=== PATIENT | female | born 1985 | race Caucasian/White ===

== ENCOUNTER 2016-12-14 19:18 | Emergency (ER) | payer OTHER ==
[2016-12-14 19:24] VITALS: O2SAT 98
--- NOTE | 2016-12-14 19:29 | ERPHSYRPT ---
- History of Present Illness Time Seen by Provider: 12/14/16 19:18 Historian: patient Exam Limitations: no limitations Physician History: Pt. C/O substernal chest pain radiating to right shoulder x 2 days. She was at urgent care today with diagnosis of possible GERD/ulcer. She is worse tonight. Pain is completely reproducible to palpation over epigastrium and sternum. No risk factors for CAD except smoking. She had LNMP 1 week ago. Uses no control. Timing/Duration: day(s) (2) Activities at Onset: none Quality: sharpness Location: epigastric Severity of Pain-Max: moderate Severity of Pain-Current: moderate Modifying Factors: Improves With: nothing Associated Symptoms: denies symptoms Prior Chest Pain/Cardiac Workup: no prior chest pain, no prior cardiac workup Nitro Today/Relief: no nitro taken today Aspirin Treatment Today: no aspirin today Allergies/Adverse Reactions: Sulfa (Sulfonamide Antibiotics) Allergy (Verified 12/14/16 19:23) Home Medications: Amphet Asp/Amphet/D-Amphet [Adderall 30 mg Tablet] 30 mg PO DAILY 12/14/16 [ History] Hx Influenza Vaccination/Date Given: No Hx Pneumococcal Vaccination/Date Given: No - Review of Systems Constitutional: No Symptoms Eyes: No Symptoms Ears, Nose, & Throat: No Symptoms Respiratory: No Symptoms Cardiac: Chest Pain Abdominal/Gastrointestinal: Abdominal Pain Musculoskeletal: No Symptoms Skin: No Symptoms Neurological: No Symptoms Psychological: No Symptoms Endocrine: No Symptoms Hematologic/Lymphatic: No Symptoms - Past Medical History Pertinent Past Medical History: No Neurological History: Migraines ENT History: No Pertinent History Cardiac History: No Pertinent History Respiratory History: No Pertinent History Endocrine Medical History: No Pertinent History Musculoskeletal History: No Pertinent History GI Medical History: No Pertinent History History: No Pertinent History Psycho-Social History: No Pertinent History Female Reproductive Disorders: No Pertinent History - Past Surgical History Past Surgical History: No Neuro Surgical History: No Pertinent History Cardiac: No Pertinent History Respiratory: No Pertinent History Gastrointestinal: No Pertinent History Genitourinary: No Pertinent History Musculoskeletal: No Pertinent History Female Surgical History: No Pertinent History - Social History Smoking Status: Current every day smoker How long have you smoked: 14 Exposure to second hand smoke: Yes Drug Use: none - Nursing Vital Signs Nursing Vital Signs: Initial Vital Signs Temperature 98.8 F Temperature Source Oral Pulse Rate [Left Radial] 60 Pulse Rate 69 Respiratory Rate 18 Blood Pressure [Left Arm] 130/72 Pain Intensity 8 - Physical Exam General Appearance: moderate distress Eye Exam: PERRL/EOMI, eyes nml inspection Ears, Nose, Throat Exam: normal ENT inspection, pharynx normal, moist mucous membranes Neck Exam: normal inspection, non-tender, supple, full range of motion Respiratory Exam: normal breath sounds, lungs clear, airway intact Cardiovascular Exam: regular rate/rhythm, normal heart sounds, normal peripheral pulses Gastrointestinal/Abdomen Exam: soft, normal bowel sounds, tenderness ( epigastrium), No mass, No guarding, No pulsatile mass Back Exam: normal inspection, normal range of motion Extremity Exam: normal inspection, normal range of motion, pelvis stable Neurologic Exam: alert, oriented x 3, cooperative Skin Exam: normal color, warm, dry SpO2 Interpretation: normal SpO2: 98 Oxygen Delivery: Room Air - Course Nursing assessment & vital signs reviewed: Yes EKG Interpreted by Me: RATE (64), Sinus Rhythm, NORMAL AXIS, Other (Normal ECG) - Radiology Exams Chest X-ray Interpretation: Interpreted by me, Reviewed by me, Negative Ordered Tests: Active Orders 24 hr Category Date Time Status EKG-ER Only STAT Care 12/14/16 19:38 Active CHEST 1 VIEW (PORTABLE) Stat Exams 12/14/16 19:34 Taken CBC W DIFF Stat Lab 12/14/16 19:30 Completed CMP Stat Lab 12/14/16 19:30 Completed LIPASE Stat Lab 12/14/16 19:30 Completed TROPONIN Stat Lab 12/14/16 19:30 Completed Medication Summary Discontinued Medications Generic Name Dose Route Start Last Admin Trade Name Bolaq PRN Reason Stop Dose Admin Al Hydrox/Mg Hydrox/Simethicone Confirm 12/14/16 19:43 Maalox Es 30 Ml Unit Dose Administered 12/14/16 19:44 Dose 30 ml .ROUTE .STK-MED ONE Aspirin 324 mg 12/14/16 19:38 12/14/16 19:49 Baby Aspirin 81 Mg Chew PO 12/14/16 19:39 324 mg STAT ONE Administration Aspirin Confirm 12/14/16 19:42 Baby Aspirin 81 Mg Chew Administered 12/14/16 19:43 Dose 324 mg .ROUTE .STK-MED ONE Belladonna Alkaloids/Phenobarbital 60 ml 12/14/16 19:34 12/14/16 19:50 Gi Cocktail 60ml (Belladonn/Phenobarb/Lidoc* PO 12/14/16 19:35 60 ml STAT ONE Administration Belladonna Alkaloids/Phenobarbital Confirm 12/14/16 19:44 Donnatol Liquid Administered 12/14/16 19:45 Dose 64.8 mg .ROUTE .STK-MED ONE Lidocaine HCl Confirm 12/14/16 19:43 Xylocaine Hcl Viscous * Administered 12/14/16 19:44 Dose 20 ml .ROUTE .STK-MED ONE Lab/Rad Data: Laboratory Result Diagrams 12/14/16 19:30 12/14/16 19:30 Laboratory Results 12/14/16 12/14/16 Range/Units 19:30 19:30 WBC 10.8 H (4.0-10.5) K/mm3 RBC 4.49 (4.1-5.4) M/mm3 Hgb 12.4 (12.0-16.0) gm/dl Hct 38.7 (35-47) % MCV 86.2 (78-100) fl MCH 27.6 (26-32) pg MCHC 32.0 (32-36) g/dl RDW 13.4 (11.5-14.0) % Plt Count 300 (150-450) K/mm3 MPV 9.7 H (6-9.5) fl Gran % 68.9 H (36.0-66.0) % Lymphocytes % 23.1 L (24.0-44.0) % Monocytes % 5.5 (0.0-12.0) % Eosinophils % 2.0 (0.00-5.0) % Basophils % 0.5 (0.0-0.4) % Basophils # 0.05 (0-0.4) Sodium 144 (136-145) mEq/L Potassium 4.0 (3.5-5.1) mEq/L Chloride 108 H (98-107) mEq/L Carbon Dioxide 24.7 (21-32) mEq/L Anion Gap 15.3 H (5-15) MEQ/L BUN 10 (9-20) mg/dL Creatinine 0.98 (0.55-1.30) mg/dl Estimated GFR > 60 ML/MIN Glucose 118 H (70-110) MG/DL Calcium 8.6 (8.5-10.1) mg/dL Total Bilirubin 0.10 L (0.2-1.0) mg/dL AST 11 L (15-37) U/L ALT 23 (12-78) U/L Alkaline Phosphatase 56 (46-116) U/L Troponin I < 0.017 (0.000-0.056) ng/ml Serum Total Protein 6.7 (6.4-8.2) gm/dL Albumin 3.6 (3.4-5.0) g/dL Lipase 226 (73-393) U/L - Progress Progress: improved Air Movement: good Blood Culture(s) Obtained: No Antibiotics given: No Will see patient in: office, other (PCP 1 week) Counseled pt/family regarding: lab results, diagnosis, need for follow-up - Departure Time of Disposition: 20:30 Departure Disposition: Home (2029) Clinical Impression: Chest pain in adult GERD (gastroesophageal reflux disease) Qualifiers: Esophagitis presence: esophagitis presence not specified Qualified Code(s): K21.9 - Gastro-esophageal reflux disease without esophagitis Condition: Stable Critical Care Time: No
[2016-12-14] MEDS ORDERED: GI COCKTAIL 60ML (Belladonn/Phenobarb/Lidoc PO ONE (19:34)
[2016-12-14] MEDS ORDERED: BABY ASPIRIN 81 MG CHEW PO ONE (19:38)
[2016-12-14] MEDS ORDERED: BABY ASPIRIN 81 MG CHEW ONE (19:42)
[2016-12-14] MEDS ORDERED: XYLOCAINE HCl Viscous ONE (19:43)
[2016-12-14] MEDS ORDERED: MAALOX ES 30 ML UNIT DOSE ONE (19:43)
[2016-12-14] MEDS ORDERED: Donnatol Liquid ONE (19:44)
[2016-12-14 19:45] LABS: BASOPHIL % 0.5 % (0.0-0.4); Granulocytes % 68.9 % (36.0-66.0); Lymphocytes % 23.1 % (24.0-44.0); Mean Cell Volume 86.2 fl (78-100); Mean Corpuscular Hemoglobin 27.6 pg (26-32); Mean Platelet Volume 9.7 fl (6-9.5); Monocytes % 5.5 % (0.0-12.0); Platelet Count 300 K/mm3 (150-450); Red Blood Count 4.49 M/mm3 (4.1-5.4); Red Cell Distribution Width 13.4 % (11.5-14.0); White Blood Count 10.8 K/mm3 (4.0-10.5)
[2016-12-14 19:52] VITALS: BP 130/72; PULSE 69
[2016-12-14 20:00] LABS: ALBUMIN 3.6 g/dL (3.4-5.0); ALKALINE PHOSPHATASE 56 U/L (46-116); ANION GAP 15.3 MEQ/L (5-15); BLOOD UREA NITROGEN 10 mg/dL (9-20); CHLORIDE 108 mEq/L (98-107); Carbon Dioxide 24.7 mEq/L (21-32); Glucose 118 MG/DL (70-110); LIPASE 226 U/L (73-393); SGOT/AST 11 U/L (15-37); SGPT/ALT 23 U/L (12-78); SODIUM 144 mEq/L (136-145); Total Protein 6.7 gm/dL (6.4-8.2)
[2016-12-14 20:02] LABS: TROPONIN < 0.017 ng/ml (0.000-0.056)
[2016-12-14] MEDS ORDERED: Zofran 4 MG/2 ML VIAL IV ONE (20:38)
[2016-12-14] MEDS ORDERED: Zofran 4 MG/2 ML VIAL ONE (20:40)
--- NOTE | 2016-12-15 08:46 | XRAY ---
Indication: Chest pain. Comparison: None Portable chest demonstrates normal heart, lungs, and bony thorax.
== END 2016-12-14 20:55 | disposition home or self-care (01) ==
LOC: ED 19:18
DX: K21.9 Gastro-esophageal reflux disease without esophagitis (principal); R07.89 Other chest pain; R10.13 Epigastric pain
CPT/HCPCS: 36415; 71010; 80053; 83690; 84484; 85025; 93005; 96374; 99284; J2405; A9270-GY

== ENCOUNTER 2019-07-06 22:01 | Emergency (ER) | payer OTHER ==
--- NOTE | 2019-07-06 23:00 | ERPHSYRPT ---
- History of Present Illness Time Seen by Provider: 07/06/19 22:59 Source: patient Exam Limitations: no limitations Patient Subjective Stated Complaint: pt states that the whole family has had the flu for the past few days, pt states that she is coughing so hard that she is urinating herself, pt states that she has had fever for the past few days, pt states that her chest hurt from coughing, pt states that she has trouble breathing, pt states that she has had a sore throat, pt states that she has been unable to keep anything down for the past 4 days, pt states very little oral intake, pt states she took teslum right before she came in Triage Nursing Assessment: pt ambulated into the er, pt is axo x4, pt is hot the the touch, pt has dry hacking cough, pt has wheezing to rt lower lobe, vitals wnl, throat is red Physician History: 4 days of vomiting and coughing. Pt notes that other members of her family have been sick with confirmed Influenza A. Pt notes that she coughs to the point of being incontinent but also that she feels short of breath and is wheezing. Timing/Duration: day(s) (3) Severity: severe Modifying Factors: Improves With: eating, movement Associated Symptoms: nausea, vomiting, abdominal pain, shortness of breath, cough, chills, chest pain, fever, headaches, malaise, weakness Allergies/Adverse Reactions: Sulfa (Sulfonamide Antibiotics) Allergy (Verified 07/06/19 22:33) Home Medications: Amphet Asp/Amphet/D-Amphet [Adderall 30 mg Tablet] 30 mg PO DAILY 12/14/16 [ History] Hx Tetanus, Diphtheria Vaccination/Date Given: No (unknown) Hx Influenza Vaccination/Date Given: No Hx Pneumococcal Vaccination/Date Given: No - Review of Systems Constitutional: Fever, Chills, Fatigue, Lethargy, Malaise Eyes: No Symptoms Ears, Nose, & Throat: No Symptoms, Nose Congestion, Nose Discharge Respiratory: Cough, Dyspnea, Wheezing, Other (chest discomfort with cough) Cardiac: No Symptoms Genitourinary Symptoms: Incontinence Musculoskeletal: Arthralgias, Myalgias Skin: No Symptoms Neurological: No Symptoms, Headache Psychological: No Symptoms Endocrine: No Symptoms Hematologic/Lymphatic: No Symptoms All Other Systems: Reviewed and Negative - Past Medical History Pertinent Past Medical History: No Neurological History: Migraines ENT History: No Pertinent History Cardiac History: No Pertinent History Respiratory History: No Pertinent History Endocrine Medical History: No Pertinent History Musculoskeletal History: No Pertinent History GI Medical History: No Pertinent History History: No Pertinent History Psycho-Social History: No Pertinent History Female Reproductive Disorders: No Pertinent History - Past Surgical History Past Surgical History: No Neuro Surgical History: No Pertinent History Cardiac: No Pertinent History Respiratory: No Pertinent History Gastrointestinal: No Pertinent History Genitourinary: No Pertinent History Musculoskeletal: No Pertinent History Female Surgical History: Section Other Surgical History: 2 c-sections - Social History Smoking Status: Current every day smoker How long have you smoked: 14 Exposure to second hand smoke: Yes Drug Use: none Patient Lives Alone: No - Female History Hx Last Menstrual Period: 07/06/19 Hx Now: No - Nursing Vital Signs Nursing Vital Signs: Initial Vital Signs Temperature 101.2 F 07/06/19 22:10 Pulse Rate 93 H 07/06/19 22:10 Respiratory Rate 14 07/06/19 22:10 Blood Pressure 131/86 07/06/19 22:10 O2 Sat by Pulse Oximetry 97 07/06/19 22:10 Pain Scale Pain Intensity 7 - Physical Exam General Appearance: mild distress, alert, lethargy Eye Exam: PERRL/EOMI, photophobia Ears, Nose, Throat Exam: normal ENT inspection, TMs normal, moist mucous membranes, pharyngeal erythema (mild) Neck Exam: normal inspection, supple, No meningismus Respiratory Exam: diminished breath sounds, wheezing (minimsl or soft) Cardiovascular Exam: regular rate/rhythm, normal heart sounds, normal peripheral pulses, No murmur, No friction rub, No gallop, No tachycardia, No edema, No pulse deficit Gastrointestinal/Abdomen Exam: soft, normal bowel sounds, tenderness, No distention, No mass, No guarding, No ecchymosis Pelvic Exam: not done Rectal Exam: deferred Back Exam: normal inspection Extremity Exam: normal inspection, normal range of motion, No parasthesia Neurologic Exam: alert, oriented x 3, cooperative, 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, nml station & gait, No motor deficits, No sensory deficit Skin Exam: normal color, warm, dry, No rash Lymphatic Exam: No adenopathy SpO2 Interpretation: normal SpO2: 97 O2 Delivery: Room Air - Course Nursing assessment & vital signs reviewed: Yes Ordered Tests: Active Orders 24 hr Category Date Time Status OBSTR/ACUTE ABDOMEN SERIES Stat Exams 07/07/19 00:47 Taken AMYLASE Stat Lab 07/07/19 00:52 Completed CBC W DIFF Stat Lab 07/07/19 00:52 Completed CMP Stat Lab 07/07/19 00:52 Completed HCG,QUALITATIVE URINE Stat Lab 07/07/19 01:57 Completed LIPASE Stat Lab 07/07/19 00:52 Completed Lactic Acid Stat Lab 07/07/19 00:55 Completed Respiratory Therapy Assessment DAILY RT 07/07/19 01:51 Active Medication Summary Discontinued Medications Generic Name Dose Route Start Last Admin Trade Name Freq PRN Reason Stop Dose Admin Albuterol/Ipratropium 3 ml 07/07/19 01:34 07/07/19 01:48 Duoneb 0.5-3 Mg/3 Ml Neb IH 07/07/19 01:35 3 ml STAT ONE Administration Albuterol/Ipratropium Confirm 07/07/19 01:44 Duoneb 0.5-3 Mg/3 Ml Neb Administered 07/07/19 01:45 Dose 3 ml IH .STK-MED ONE Sodium Chloride 1,000 mls @ 999 mls/hr 07/07/19 00:46 07/07/19 02:13 Sodium Chloride 0.9% 1000 Ml IV 07/07/19 01:46 Infused .Q1H1M STA Infusion Sodium Chloride Confirm 07/07/19 01:00 Sodium Chloride 0.9% 1000 Ml Administered 07/07/19 01:01 Dose 1,000 mls @ ud .ROUTE .STK-MED ONE Sodium Chloride Confirm 07/07/19 01:06 Sodium Chloride 0.9% 1000 Ml Administered 07/07/19 01:07 Dose 1,000 mls @ ud .ROUTE .STK-MED ONE Ondansetron HCl 4 mg 07/07/19 00:46 07/07/19 01:08 Zofran 4 Mg/2 Ml Vial IV 07/07/19 00:47 4 mg STAT ONE Administration Ondansetron HCl Confirm 07/07/19 01:00 Zofran 4 Mg/2 Ml Vial Administered 07/07/19 01:01 Dose 4 mg .ROUTE .STK-MED ONE Ondansetron HCl Confirm 07/07/19 01:06 Zofran 4 Mg/2 Ml Vial Administered 07/07/19 01:07 Dose 4 mg .ROUTE .[facility] ONE Oseltamivir Phosphate 75 mg 07/07/19 01:37 07/07/19 01:55 Tamiflu 75mg Capsule PO 07/07/19 01:38 75 mg STAT ONE Administration Oseltamivir Phosphate Confirm 07/07/19 01:55 Tamiflu 75mg Capsule Administered 07/07/19 01:56 Dose 75 mg PO .[facility] ONE Lab/Rad Data: Laboratory Result Diagrams 07/07/19 00:52 07/07/19 00:52 Laboratory Results 07/07/19 07/07/19 07/07/19 Range/Units 01:57 00:56 00:55 WBC (4.0-10.5) K/mm3 RBC (4.1-5.4) M/mm3 Hgb (12.0-16.0) gm/dl Hct (35-47) % MCV (78-100) fl MCH (26-32) pg MCHC (32-36) g/dl RDW (11.5-14.0) % Plt Count (150-450) K/mm3 MPV (6-9.5) fl Gran % (36.0-66.0) % Eos # (Auto) (0-0.5) Absolute Lymphs (auto) (1.0-4.6) Absolute Monos (auto) (0.0-1.3) Lymphocytes % (24.0-44.0) % Monocytes % (0.0-12.0) % Eosinophils % (0.00-5.0) % Basophils % (0.0-0.4) % Absolute Granulocytes (1.4-6.9) Basophils # (0-0.4) Sodium (137-145) mmol/L Potassium (3.5-5.1) mmol/L Chloride (98-107) mmol/L Carbon Dioxide (22-30) mmol/L Anion Gap (5-15) MEQ/L BUN (7-17) mg/dL Creatinine (0.52-1.04) mg/dL Estimated GFR ML/MIN Glucose (74-106) mg/dL Lactic Acid 1.0 (0.4-2.0) Calcium (8.4-10.2) mg/dL Total Bilirubin (0.2-1.3) mg/dL AST (14-36) U/L ALT (0-35) U/L Alkaline Phosphatase (38-126) U/L Serum Total Protein (6.3-8.2) g/dL Albumin (3.5-5.0) g/dL Amylase (30-110) U/L Lipase (23-300) U/L Urine HCG, Qual NEGATIVE (Negative) Influenza Type A Ag POSITIVE (NEGATIVE) Influenza Type B Ag NEGATIVE (NEGATIVE) RSV (PCR) NEGATIVE (Negative) 07/07/19 07/07/19 Range/Units 00:52 00:52 WBC 5.4 (4.0-10.5) K/mm3 RBC 4.81 (4.1-5.4) M/mm3 Hgb 13.2 (12.0-16.0) gm/dl Hct 40.6 (35-47) % MCV 84.4 (78-100) fl MCH 27.4 (26-32) pg MCHC 32.5 (32-36) g/dl RDW 13.2 (11.5-14.0) % Plt Count 213 (150-450) K/mm3 MPV 10.3 H (6-9.5) fl Gran % 76.1 H (36.0-66.0) % Eos # (Auto) 0 (0-0.5) Absolute Lymphs (auto) 0.80 L (1.0-4.6) Absolute Monos (auto) 0.48 (0.0-1.3) Lymphocytes % 14.8 L (24.0-44.0) % Monocytes % 8.9 (0.0-12.0) % Eosinophils % 0.0 (0.00-5.0) % Basophils % 0.2 (0.0-0.4) % Absolute Granulocytes 4.10 (1.4-6.9) Basophils # 0.01 (0-0.4) Sodium 135 L (137-145) mmol/L Potassium 3.2 L (3.5-5.1) mmol/L Chloride 100 (98-107) mmol/L Carbon Dioxide 25 (22-30) mmol/L Anion Gap 12.8 (5-15) MEQ/L BUN 7 (7-17) mg/dL Creatinine 0.75 (0.52-1.04) mg/dL Estimated GFR > 60.0 ML/MIN Glucose 115 H (74-106) mg/dL Lactic Acid (0.4-2.0) Calcium 8.8 (8.4-10.2) mg/dL Total Bilirubin 0.40 (0.2-1.3) mg/dL AST 42 H (14-36) U/L ALT 19 (0-35) U/L Alkaline Phosphatase 60 (38-126) U/L Serum Total Protein 7.0 (6.3-8.2) g/dL Albumin 3.8 (3.5-5.0) g/dL Amylase 72 (30-110) U/L Lipase 90 (23-300) U/L Urine HCG, Qual (Negative) Influenza Type A Ag (NEGATIVE) Influenza Type B Ag (NEGATIVE) RSV (PCR) (Negative) - Progress Progress: improved Progress Note: 07/07/19 09:41 This pt cam in when there were several pt's here and some needing to be discharged. I did see the pt in a timely fashion but it took a bit to realize that I had put a discharge and other order set in first not getting her orders in very quickly and missing the Duoneb order initially. Pt was not hypoxic but did get some relief from the duoneb when she finally got the treatment. Pt improved also with normal saline bolus and with zofran. - Departure Departure Disposition: Home Clinical Impression: Influenza A, Vomiting, Acute bronchospasm Condition: Stable Critical Care Time: No Referrals: LATRICE PANTOJA MD [Primary Care Provider] - Instructions: Nausea -- Adult, Vomiting -- Adult Additional Instructions: You will need to take the Tamiflu for the next 5 days and then Zofran as needed for nausea and vomiting. Start to take sips of liquids every 5-10 minutes and then after a couple of times take an ounce and wait for 10-15 minutes. When you can keep the ounce down then you may drink /sip freely, non-caffienated clear liquids, jello, and broth or popsicles. Do this for 24 hours. Then, for the next 24 hours then you can try Bananas, Rice, Applesauce and toast. When you can keep these things down then you can advance your diet as tolerated. I would suggest starting with the rice and maybe some soy sauce or cook the rice in a broth but be careful no to add milk or alot of butter as this could upset your stomach. Prescriptions: Ondansetron ODT 4 MG [Zofran Odt 4 mg] 4 mg PO Q8H PRN PRN #8 tab.rapdis PRN Reason: Vomiting Albuterol 8 gm Mdi Hfa [Ventolin Hfa MDI] 8 gm IH Q4H #1 hfa.aer.ad Oseltamivir 75 mg [Tamiflu 75MG Capsule] 75 mg PO BID #10 cap
[2019-07-07] MEDS ORDERED: Sodium Chloride 0.9% 1000 ML 1,000 ML IV STA (00:46)
[2019-07-07] MEDS ORDERED: Zofran 4 MG/2 ML VIAL IV ONE (00:46)
[2019-07-07 00:56] LABS: BASOPHIL % 0.2 % (0.0-0.4); Basophil (Absolute #) 0.01 (0-0.4); Eosinophil (Absolute #) 0 (0-0.5); Hematocrit 40.6 % (35-47); Hemoglobin 13.2 gm/dl (12.0-16.0); Lymphocytes % 14.8 % (24.0-44.0); Mean Cell Volume 84.4 fl (78-100); Mean Corpuscular Hemoglobin 27.4 pg (26-32); Mean Corpuscular Hgb Concent. 32.5 g/dl (32-36); Mean Platelet Volume 10.3 fl (6-9.5); Monocyte (Absolute #) 0.48 (0.0-1.3); Monocytes % 8.9 % (0.0-12.0); Neutrophil % 76.1 % (36.0-66.0); Platelet Count 213 K/mm3 (150-450); Red Blood Count 4.81 M/mm3 (4.1-5.4); Red Cell Distribution Width 13.2 % (11.5-14.0); White Blood Count 5.4 K/mm3 (4.0-10.5)
[2019-07-07] MEDS ORDERED: Zofran 4 MG/2 ML VIAL ONE ×2 (01:00→01:06)
[2019-07-07] MEDS ORDERED: Sodium Chloride 0.9% 1000 ML 0 ML ONE (01:00)
[2019-07-07 01:01] LABS: ALBUMIN 3.8 g/dL (3.5-5.0); ALKALINE PHOSPHATASE 60 U/L (38-126); AMYLASE 72 U/L (30-110); ANION GAP 12.8 MEQ/L (5-15); BLOOD UREA NITROGEN 7 mg/dL (7-17); CHLORIDE 100 mmol/L (98-107); Calcium 8.8 mg/dL (8.4-10.2); Carbon Dioxide 25 mmol/L (22-30); Creatinine 1 0.75 mg/dL (0.52-1.04); Glucose 115 mg/dL (74-106); LIPASE 90 U/L (23-300); Potassium 3.2 mmol/L (3.5-5.1); SGOT/AST 42 U/L (14-36); SGPT/ALT 19 U/L (0-35); SODIUM 135 mmol/L (137-145)
[2019-07-07] MEDS ORDERED: Sodium Chloride 0.9% 1000 ML 1,000 ML ONE (01:06)
[2019-07-07 01:33] LABS: INFLUENZA A POSITIVE (NEGATIVE); INFLUENZA B NEGATIVE (NEGATIVE); RESPIRATORY SYNCTIAL VIRUS NEGATIVE (Negative)
[2019-07-07] MEDS ORDERED: DUONEB 0.5-3 MG/3 ml Neb IH ONE ×2 (01:34→01:44)
[2019-07-07] MEDS ORDERED: Tamiflu 75MG Capsule PO ONE ×2 (01:37→01:55)
[2019-07-07 02:02] VITALS: BP 117/81; PULSE 91
[2019-07-07 02:03] VITALS: O2SAT 97
--- NOTE | 2019-07-07 09:41 | XRAY ---
Indication: Cough, short of breath, and vomiting. Comparison: Chest exam December 14, 2016. 2 views of the abdomen demonstrates minimal small bowel air-fluid leveling, ileus versus enteritis. No focal bowel dilatation, obstruction, or free air. Solid organs and osseous structures unremarkable. Single frontal chest again demonstrates normal heart, lungs, and bony thorax. Impression: 1. Minimal small bowel fluid leveling, ileus versus enteritis. 2. Stable normal one view chest.
== END 2019-07-07 02:40 | disposition home or self-care (01) ==
LOC: ED 22:01
DX: J10.1 Influenza due to other identified influenza virus with other respiratory manifestations (principal); R11.10 Vomiting, unspecified; J98.01 Acute bronchospasm
CPT/HCPCS: 36000; 36415; 74022; 80053; 82150; 83605; 83690; 84703; 85025; 87631; 94640; 96360; 96374; 99284; J2405; A9270-GY